=== PATIENT | male | born 1975 | race Caucasian/White ===

== ENCOUNTER 2017-11-20 13:33 | Emergency (ER) | payer OTHER ==
[~2017-11-20] VITALS: Ht 180.3 cm; Wt 108.9 kg
[~2017-11-20 13:33] MED LIST: LEVSIN/SL0.125 MG SL; NABUMETONE500 MG PO; PROTONIX20 MG; ZANTAC150 M3
== END 2017-11-20 19:30 | disposition home or self-care (01) ==
LOC: ER 13:33
DX: K52.9 Noninfective gastroenteritis and colitis, unspecified (principal); E86.0 Dehydration

== ENCOUNTER 2020-03-22 03:23 | Emergency (ER) | payer OTHER ==
[~2020-03-22] VITALS: Ht 180.3 cm; Wt 103.4 kg
[2020-03-22] MEDS ORDERED: LOSARTAN POTASS50 MG (03:38)
[2020-03-22] MEDS ORDERED: MEDROLPACK PO (04:30)
[2020-03-22] MEDS ORDERED: BENADRYL ALLERG25 MG PO (04:30)
== END 2020-03-22 06:14 | disposition home or self-care (01) ==
LOC: ER 03:23
DX: T78.49XA Other allergy, initial encounter (principal); R21 Rash and other nonspecific skin eruption; W57.XXXA Bitten or stung by nonvenomous insect and other nonvenomous arthropods, initial encounter

== ENCOUNTER 2020-04-16 11:32 | Emergency (ER) | payer OTHER ==
[~2020-04-16] VITALS: Ht 180.3 cm; Wt 101.2 kg
[~2020-04-16 11:32] MED LIST changes: +BENADRYL ALLERG25 MG PO; +LOSARTAN POTASS50 MG; +MEDROLPACK PO
[2020-04-16] MEDS ORDERED: ADULT LOW DOSE81 M1 (11:52)
[2020-04-16] MEDS ORDERED: MOMETASONE FURO15 G2 TOP (15:42)
[2020-04-16] MEDS ORDERED: ZYRTEC10 M3 PO (15:42)
== END 2020-04-16 15:43 | disposition home or self-care (01) ==
LOC: ER 11:32
DX: R21 Rash and other nonspecific skin eruption (principal)